=== PATIENT | male | born 1955 ===

== ENCOUNTER 2020-02-14 16:38 | Emergency (ER) | payer OTHER ==
[~2020-02-14] VITALS: Ht 190.5 cm; Wt 115.4 kg
--- NOTE | 2020-02-14 18:02 | NUR ---
PT PRESENTS TO ED WITH C/O RIGHT CALF SWELLING AND PAIN X 1 WEEK, DENIES CHEST PAIN, DENIES SOB. PT IS A&O, RESPS EVEN AND UNLABORED. PT SEEN AND EXAMINED BY MD PHILLIPS. AWAITING DC AT THIS TIME.
[2020-02-14 18:40] VITALS: BP 136/79
--- NOTE | 2020-02-14 18:42 | NUR ---
Patient given discharge instructions and they have confirmed that they understand the instructions. Patient ambulatory with steady gait.
== END 2020-02-14 18:43 | disposition home or self-care (01) ==
LOC: ED 17:09
DX: I82.411 Acute embolism and thrombosis of right femoral vein (principal); I82.431 Acute embolism and thrombosis of right popliteal vein
CPT/HCPCS: 99283

== ENCOUNTER → 2020-02-14 | Outpatient (CLI) | payer OTHER | END | disposition home or self-care (01) | LOC: CFH 15:57 | PROVIDERS: ATTEND Nurse Practitioner Family | DX: I82.411 Acute embolism and thrombosis of right femoral vein (principal) ==